=== PATIENT | male | born 1960 | race Caucasian/White ===

== ENCOUNTER → 2020-08-22 09:37 | Outpatient (BNVA) | payer OTHER, SELFPAY | PROVIDERS: Visit Provider Internal Medicine Cardiovascular Disease | DX: I10 Essential (primary) hypertension (principal) | CPT/HCPCS: 99214 ==

== ENCOUNTER 2020-08-23 10:11 | Outpatient (REF) | payer OTHER, SELFPAY ==
[2020-08-23 13:10] LABS: Amphetamine Screen Urine Not Detected (Not Detect); Barbiturates, Urine Not Detected (Not Detect); Benzodiazepines Screen Urine Not Detected (Not Detect); Cannabinoid Screen Urine Not Detected (Not Detect); Cocaine Screen Urine Not Detected (Not Detect); Opiate Screen Urine Not Detected (Not Detect); Phencyclidine Screen Urine Not Detected (Not Detect)
== END 2020-08-23 10:12 | disposition home or self-care (01) ==
LOC: HO.10HDL 10:11
PROVIDERS: Visit Provider Physician Assistant
DX: F19.10 Other psychoactive substance abuse, uncomplicated (principal)
CPT/HCPCS: 80307

== ENCOUNTER 2020-09-19 11:28 | Outpatient (REF) | payer OTHER, SELFPAY ==
[2020-09-19 14:51] LABS: Opiate Screen Urine Not Detected (Not Detect)
[2020-09-19 14:53] LABS: Barbiturates, Urine Not Detected (Not Detect); Benzodiazepines Screen Urine Not Detected (Not Detect); Cannabinoid Screen Urine Not Detected (Not Detect); Cocaine Screen Urine Not Detected (Not Detect); Opiate Screen Urine Not Detected (Not Detect); Phencyclidine Screen Urine Not Detected (Not Detect)
[2020-09-19 14:54] LABS: Amphetamine Screen Urine Not Detected (Not Detect)
== END 2020-09-19 11:29 | disposition home or self-care (01) ==
LOC: HO.10HDL 11:28
PROVIDERS: Physician Assistant; Visit Provider Orthopaedic Surgery
DX: F19.10 Other psychoactive substance abuse, uncomplicated (principal)
CPT/HCPCS: 80307

== ENCOUNTER 2020-10-21 09:40 | Outpatient (REF) | payer OTHER, SELFPAY ==
[2020-10-21 10:57] LABS: Amphetamine Screen Urine Not Detected (Not Detect); Barbiturates, Urine Not Detected (Not Detect); Benzodiazepines Screen Urine Not Detected (Not Detect); Cannabinoid Screen Urine Not Detected (Not Detect); Cocaine Screen Urine Not Detected (Not Detect); Opiate Screen Urine Not Detected (Not Detect); Phencyclidine Screen Urine Not Detected (Not Detect)
== END 2020-10-21 09:41 | disposition home or self-care (01) ==
LOC: HO.10HDL 09:40
PROVIDERS: Visit Provider Physician Assistant
DX: F19.10 Other psychoactive substance abuse, uncomplicated (principal)
CPT/HCPCS: 80307

== ENCOUNTER 2020-10-21 09:56 | Outpatient (REF) | payer OTHER, SELFPAY ==
--- NOTE | 2020-10-21 09:56 | XR_ITS ---
EXAMINATION: AP PELVIS AND RIGHT HIP CLINICAL INFORMATION: Presence of right artificial hip joint. Pain. COMPARISON: Right hip 06/03/2020 TECHNIQUE: AP pelvis 1 view. Right hip 2 views. FINDINGS: AP pelvis: There is a total right hip prosthesis with the prosthetic components in satisfactory alignment. There is 4 mm lucency seen between the cement and bone interface medially. There is severe loss of left hip joint space with subchondral cystic changes along the femoral head and lateral acetabular spurring consistent with advanced degenerative changes. Rest the pelvis and SI joints unremarkable. Right hip: There is a total right hip prosthesis in alignment. There is significant increased distance between the cement and the bone interface medially on frog-leg view suggestive of loosening. Hypertrophic bony changes seen along the lateral proximal femur. The femoral head is well situated within the acetabulum. XR/XR pelvis 1-2V IMPRESSION: Right hip arthroplasty in satisfactory alignment with hypertrophic bony changes along the lateral proximal femur. There is medial loosening of the femoral prosthesis which has progressed since May 2020. The femoral head prosthesis is good alignment with [place] acetabulum. Severe degenerative arthritic changes left hip joint with subchondral cystic changes and mild lateral acetabular spurring.
--- NOTE | 2020-10-21 09:56 | XR_ITS ---
EXAMINATION: AP PELVIS AND RIGHT HIP CLINICAL INFORMATION: Presence of right artificial hip joint. Pain. COMPARISON: Right hip 06/03/2020 TECHNIQUE: AP pelvis 1 view. Right hip 2 views. FINDINGS: AP pelvis: There is a total right hip prosthesis with the prosthetic components in satisfactory alignment. There is 4 mm lucency seen between the cement and bone interface medially. There is severe loss of left hip joint space with subchondral cystic changes along the femoral head and lateral acetabular spurring consistent with advanced degenerative changes. Rest the pelvis and SI joints unremarkable. Right hip: There is a total right hip prosthesis in alignment. There is significant increased distance between the cement and the bone interface medially on frog-leg view suggestive of loosening. Hypertrophic bony changes seen along the lateral proximal femur. The femoral head is well situated within the acetabulum. XR/XR hip RT min 2V IMPRESSION: Right hip arthroplasty in satisfactory alignment with hypertrophic bony changes along the lateral proximal femur. There is medial loosening of the femoral prosthesis which has progressed since May 2020. The femoral head prosthesis is good alignment with [place] acetabulum. Severe degenerative arthritic changes left hip joint with subchondral cystic changes and mild lateral acetabular spurring.
== END 2020-10-21 09:57 | disposition home or self-care (01) ==
LOC: HO.HOSX 09:56
PROVIDERS: Visit Provider Physician Assistant
DX: Z96.641 Presence of right artificial hip joint (principal)
CPT/HCPCS: 72170; 73502

== ENCOUNTER 2020-11-05 12:08 | Outpatient (REF) | payer OTHER, SELFPAY ==
--- NOTE | 2020-11-05 14:19 | ECG_ITS ---
Test Reason : CP Blood Pressure : / mmHG Vent. Rate : 093 BPM Atrial Rate : 093 BPM P-R Int : 188 ms QRS Dur : 104 ms QT Int : 374 ms P-R-T Axes : 051 -37 027 degrees QTc Int : 465 ms Normal sinus rhythm Left axis deviation Minimal voltage criteria for LVH, may be normal variant Inferior infarct , age undetermined Cannot rule out Anterior infarct , age undetermined Abnormal ECG When compared with ECG of 15-SEP-2019 11:17, Inferior infarct is now Present Referred By: Ancelmo Bran Electronically Signed By:LUCIANA BRADY MD
[2020-11-05 15:12] LABS: Eosinophils Percent Auto 0.4 % (0-4); Hemoglobin 9.8 g/dl (14.0-18.0); MANUAL DIFF FLAG SCAN; Red Cell Distribution Width 25.2 % (11.0-16.0); SCAN SMEAR FLAG 1
[2020-11-05 15:14] LABS: Basophils Absolute Auto 0.1 X10*3/uL (0.0-0.2); Basophils Percent Auto 0.9 % (0-2); Hematocrit 36.3 % (42-52); Imm Gran Abs Auto 0.03 X10*3/uL (0.00-0.03); Imm Gran Pct Auto 0.4 % (0.0-0.4); Mean Corpuscular Hemoglobin 15.2 pg (27.0-33.0); Monocytes Absolute Auto 0.5 X10*3/uL (0.1-1.2); Monocytes Percent Auto 6.3 % (2-11); Neutrophils Absolute Auto 5.1 X10*3/uL (2.0-8.3); Platelet Count 491 X10*3/uL (160-400); Red Blood Count 6.43 X10*6/uL (4.60-5.80); White Blood Count 7.7 X10*3/uL (4.8-10.8)
[2020-11-05 15:30] LABS: Anion Gap 15 (12-20); Blood Urea Nitrogen 13 mg/dL (9-16); Calcium 9.7 mg/dL (8.4-10.2); Carbon Dioxide 25 mmol/L (22-29); Chloride 105 mmol/L (96-108); Estimated Glomerular Filt Rate > 60; Glucose Random 101 mg/dL (60-115); Potassium 4.5 mmol/l (3.3-5.1); Sodium 140 mmol/L (135-145)
[2020-11-05 15:55] LABS: Opiate Screen Urine Not Detected (Not Detect)
[2020-11-05 16:03] LABS: Mean Corpuscular Volume 56.5 fL (80-98)
[2020-11-05 16:04] LABS: PLT ABN DIST 1
[2020-11-05 16:11] LABS: SLIDE REVIEW VERIFIED
== END 2020-11-05 12:09 | disposition home or self-care (01) ==
LOC: HO.LAB 12:08
PROVIDERS: PCP Nurse Practitioner Family; Visit Provider Orthopaedic Surgery
DX: Z01.810 Encounter for preprocedural cardiovascular examination (principal); T84.51XD Infection and inflammatory reaction due to internal right hip prosthesis, subsequent encounter
CPT/HCPCS: 36415; 80048; 80307; 85025; 85060; 93005; 99212

== ENCOUNTER 2020-11-28 | Outpatient (REF) | payer OTHER, SELFPAY ==
--- NOTE | 2020-11-11 13:14 | P.CONAN_ITS ---
HPI - Anesthesia Eval Consult details Narrative: 60yo M for Hip Replacement Revision Total Original R SATYA 08/2019, antibiotic spacer 09/2019 Revision delayed d/t opioid misuse. Currently on suboxone. Pt cx'd d/t refusal of Urine Tox screen [facility] Past Medical History Medical History (Updated 11/07/20 @ 11:44 by Arline Heck) Asthma Chronic hepatitis C Cocaine abuse Heroin abuse Hip arthritis HTN (hypertension) Hypertension Osteoarthritis Severe depression Sleep apnea Family History Family History Father No problems noted. Mother No problems noted. Surgical History Surgical History (Updated 11/07/20 @ 11:43 by Arline Heck) H/O arthroscopy of left knee H/O wrist surgery History of cranial surgery History of excision of lesion History of hip replacement, total History of incision and drainage Hx of eye surgery Hx of hemorrhoidectomy Social History Social History Smoking Status: Never smoker Second Hand Smoke Exposure: No Use of substances other than those prescribed or required for medical reasons: Yes Advance Directives: Yes Advance Directives Information Provided: No Advance Directives on File: Yes Advance Directives Date on File: 08/23/20 Meds Allergies Allergy/AdvReac Type Severity Reaction Status Date / Time No Known Allergies Allergy Unverified 09/19/20 11:09 Home Medications Medication Instructions Recorded Confirmed Type diltiazem HCl 240 mg 240 mg PO BID cap 08/22/20 10/22/20 History capsule,extended release 24 hr, controlled Exam Exam Date and Time: November 11, 2020 1314 Pertinent Lab Results Pertinent Lab Results: Laboratory Tests 11/05/20 14:25 Blood Type O Negative Antibody Screen NEGATIVE Laboratory Tests 11/05/20 11/05/20 09:21 09:21 WBC 7.7 Hgb 9.8 L Hct 36.3 L Plt Count 491 H Sodium 140 Potassium 4.5 Chloride 105 Carbon Dioxide 25 BUN 13 Creatinine 1.03 Narrative Narrative: EKG 10/2020 Normal sinus rhythm Left axis deviation Minimal voltage criteria for LVH, may be normal variant Inferior infarct , age undetermined Cannot rule out Anterior infarct , age undetermined Abnormal ECG When compared with ECG of 15-SEP-2019 11:17, Inferior infarct is now Present EKG reviewed by cardiology Dr Barbosa. OK to proceed if pt free from symptoms like chest pain/SOB Lexiscan stress 2019 nml per 08/2020 cardiology OV note. Assessment and Plan Assessment Anesthesia Assessment: Chart Reviewed
[2020-11-13 09:54] VITALS: BMI 22.0
--- NOTE | 2020-11-17 07:56 | MHC.SHP ---
Pre-Procedural Eval Section A The patient is an INPATIENT: No Changes since office visit: No Cold of Flu in the past 2 weeks, No New Medical Problems, No Changes in Medication and No Patient answered all questions The History & Physical has been completed within 30 days and I have reviewed it.: Yes Section B Chief Complaint: hip pain Allergies: Allergies Allergy/AdvReac Type Severity Reaction Status Date / Time No Known Allergies Allergy Unverified 09/19/20 11:09 Plan I have reviewed the history and physical and performed a pertinent physical examination on my patient. No changes have occurred unless specified.
--- NOTE | 2020-11-18 07:20 | PC.NURSE ---
Addendum entered by Altagracia King RN 11/18/20 07:42: INSTRUM SPOKE TO PT. Original Note: PT NOT ABLE TO VOID AND REFUSING TO TRY. ANESTHESIA MADE AWARE. BLOOD DRAW SUGGESTED BY ANESTHESIA BUT PT REFUSING. STATES HE'S DONE ENOUGH URINES OVER LAST FEW MONTHS AND WON'T DO ANOTHER ONE. LAST ONE DONE NOV 05 AND WAS NEGATIVE. ALL THIS INFO COMMUNICATED TO DR JHAVERI AND DR SWEENEY. [facility]UM CANCELLED THE SURGERY.
[2020-11-18 07:30] LABS: COVID-19 Test Negative (Negative)
== END 2020-11-28 00:01 ==
LOC: HO.LAB
PROVIDERS: PCP Nurse Practitioner Family; Visit Provider Orthopaedic Surgery
DX: Z96.641 Presence of right artificial hip joint (principal); Z20.828 Contact with and (suspected) exposure to other viral communicable diseases
CPT/HCPCS: 36415; 86850; 86900; 86901; 87635; J3370

== ENCOUNTER 2020-12-10 09:34 | Outpatient (REF) | payer OTHER, SELFPAY ==
[2020-12-10 10:51] LABS: Amphetamine Screen Urine Not Detected (Not Detect); Barbiturates, Urine Not Detected (Not Detect); Benzodiazepines Screen Urine Not Detected (Not Detect); Cannabinoid Screen Urine Not Detected (Not Detect); Cocaine Screen Urine Not Detected (Not Detect); Opiate Screen Urine Not Detected (Not Detect); Phencyclidine Screen Urine Not Detected (Not Detect)
== END 2020-12-10 09:35 | disposition home or self-care (01) ==
LOC: HO.10HDL 09:34
PROVIDERS: Visit Provider Orthopaedic Surgery
DX: F19.10 Other psychoactive substance abuse, uncomplicated (principal)
CPT/HCPCS: 80307

== ENCOUNTER 2020-12-18 08:39 | Outpatient (REF) | payer OTHER, SELFPAY ==
[2020-12-18 10:58] LABS: Opiate Screen Urine Not Detected (Not Detect)
== END 2020-12-18 08:40 | disposition home or self-care (01) ==
LOC: HO.10HDL 08:39
PROVIDERS: Visit Provider Orthopaedic Surgery
DX: F19.10 Other psychoactive substance abuse, uncomplicated (principal)
CPT/HCPCS: 80307

== ENCOUNTER 2020-12-25 10:55 | Outpatient (REF) | payer OTHER, SELFPAY ==
[2020-12-25 15:01] LABS: Opiate Screen Urine Not Detected (Not Detect)
== END 2020-12-25 10:56 | disposition home or self-care (01) ==
LOC: HO.10HDL 10:55
PROVIDERS: Visit Provider Orthopaedic Surgery
DX: F19.10 Other psychoactive substance abuse, uncomplicated (principal)
CPT/HCPCS: 80307

== ENCOUNTER 2021-01-01 10:05 | Outpatient (REF) | payer OTHER, SELFPAY ==
[2021-01-01 14:44] LABS: Opiate Screen Urine Not Detected (Not Detect)
== END 2021-01-01 10:06 | disposition home or self-care (01) ==
LOC: HO.10HDL 10:05
PROVIDERS: Visit Provider Orthopaedic Surgery
DX: F19.10 Other psychoactive substance abuse, uncomplicated (principal)
CPT/HCPCS: 80307

== ENCOUNTER 2021-07-16 09:22 | Outpatient (REF) | payer MEDICARE, MEDICAID, SELFPAY ==
--- NOTE | ~2021-07-16 | XR_ITS ---
EXAMINATION: XR HIP, LEFT CLINICAL INFORMATION: Pain COMPARISON: Previous pelvis x-ray October 2020 TECHNIQUE: Two views of the left hip. FINDINGS: No fracture or dislocation is seen. There is severe left hip arthritis with joint space narrowing, osteophyte formation and subchondral cyst formation. Bones of the visualized pelvis are unremarkable. Soft tissues are unremarkable. XR/XR hip LT min 2V IMPRESSION: Severe left hip arthritis.
== END 2021-07-16 09:23 | disposition home or self-care (01) ==
LOC: HO.HMGCX 09:22
PROVIDERS: PCP Nurse Practitioner Family; Visit Provider Nurse Practitioner Family
DX: Z13.89 Encounter for screening for other disorder (principal)
CPT/HCPCS: 73502

== ENCOUNTER 2021-09-10 09:55 | Outpatient (REF) | payer MEDICARE, MEDICAID, SELFPAY ==
[2021-09-10 12:08] LABS: Alanine Aminotransferase 13 U/L (0-40); Albumin Level 4.4 g/dL (3.5-5.0); Alkaline Phosphatase 101 U/L (39-117); Anion Gap 13 (12-20); Aspartate Amino Transferase 22 U/L (5-37); Bilirubin Total 0.4 mg/dL (0.0-1.0); Blood Urea Nitrogen 13 mg/dL (9-16); Calcium 9.3 mg/dL (8.4-10.2); Carbon Dioxide 30 mmol/L (22-29); Chloride 101 mmol/L (96-108); Cholesterol 151 mg/dL; Estimated Glomerular Filt Rate > 60; Glucose Fasting 89 mg/dL (60-99); HDL Cholesterol 63 mg/dL; LDL Cholesterol Calculated 72 mg/dl; Potassium 4.9 mmol/L (3.3-5.1); Sodium 139 mmol/L (135-145); Total Protein 8.4 g/dL (6.5-8.0); Triglycerides 81 mg/dL
[2021-09-10 12:18] LABS: TSH reflex Free T4 2.46 uIU/mL (0.32-4.0)
== END 2021-09-10 09:56 | disposition home or self-care (01) ==
LOC: HO.HMGCLDS 09:55
PROVIDERS: PCP Nurse Practitioner Family; Visit Provider Nurse Practitioner Family
DX: I10 Essential (primary) hypertension (principal)
CPT/HCPCS: 36415; 80053; 80061; 84443

== ENCOUNTER 2021-09-11 | Outpatient (REF) | payer MEDICARE, MEDICAID, SELFPAY ==
[2021-09-11 13:52] LABS: Appearance Urine CLEAR; Color Urine YELLOW; Glucose Urine UA NEG (NEG); Leukocyte Esterase Urine NEG (NEG); Nitrite Urine NEG (NEG); PH 5.5 (5.0-8.0); Specific Gravity - Urine 1.015 (1.005-1.025); Urine Blood NEG (NEG); Urine Ketones NEG (NEG); Urine Protein NEG (NEG-TRACE)
== END 2021-09-11 00:01 | disposition home or self-care (01) ==
LOC: HO.HMGCLNP
PROVIDERS: Visit Provider Nurse Practitioner Family
DX: I10 Essential (primary) hypertension (principal)
CPT/HCPCS: 81003

== ENCOUNTER 2021-09-17 10:00 | Outpatient (RCR) | payer MEDICARE, OTHER, MEDICAID, SELFPAY | END 2021-09-26 08:35 | disposition home or self-care (01) | LOC: HO.PTCHIC 10:00 | PROVIDERS: PCP Nurse Practitioner Family; Visit Provider Physician Assistant | DX: Z98.890 Other specified postprocedural states (principal); Z86.19 Personal history of other infectious and parasitic diseases | CPT/HCPCS: 97110; 97112; 97140; 97161 ==

== ENCOUNTER 2021-09-17 14:19 | Outpatient (REF) | payer MEDICARE, MEDICAID, SELFPAY ==
[2021-09-17 17:23] LABS: Prostate Specific Antigen Scr 0.19 ng/mL (<0.05-4.0)
== END 2021-09-17 14:20 | disposition home or self-care (01) ==
LOC: HO.HMGCLDS 14:19
PROVIDERS: Visit Provider Nurse Practitioner Family
DX: Z12.5 Encounter for screening for malignant neoplasm of prostate (principal)
CPT/HCPCS: 36415; 84153

== ENCOUNTER 2021-12-04 11:05 | Outpatient (REF) | payer MEDICARE, MEDICAID, SELFPAY ==
[2021-12-04 14:36] LABS: Alanine Aminotransferase 13 U/L (0-40); Albumin Level 4.2 g/dL (3.5-5.0); Alkaline Phosphatase 103 U/L (39-117); Anion Gap 13 (12-20); Aspartate Amino Transferase 18 U/L (5-37); Bilirubin Total 0.2 mg/dL (0.0-1.0); Blood Urea Nitrogen 13 mg/dL (9-16); Calcium 9.4 mg/dL (8.4-10.2); Carbon Dioxide 30 mmol/L (22-29); Chloride 103 mmol/L (96-108); Cholesterol 141 mg/dL; Estimated Glomerular Filt Rate > 60; Glucose Fasting 99 mg/dL (60-99); HDL Cholesterol 57 mg/dL; LDL Cholesterol Calculated 70 mg/dl; Sodium 141 mmol/L (135-145); Triglycerides 73 mg/dL
[2021-12-04 15:03] LABS: TSH reflex Free T4 2.09 uIU/mL (0.32-4.0)
== END 2021-12-04 11:06 | disposition home or self-care (01) ==
LOC: HO.HMGCLDS 11:05
PROVIDERS: Visit Provider Nurse Practitioner Family
DX: I10 Essential (primary) hypertension (principal)
CPT/HCPCS: 36415; 80053; 80061; 84443

== ENCOUNTER 2021-12-10 10:00 | Outpatient (RCR) | payer MEDICARE, MEDICAID, SELFPAY | END 2021-12-11 07:00 | disposition home or self-care (01) | LOC: HO.PTCHIC 10:00 | PROVIDERS: PCP Nurse Practitioner Family; Visit Provider Physician Assistant | DX: Z96.642 Presence of left artificial hip joint (principal) | CPT/HCPCS: 97110; 97162 ==

== ENCOUNTER 2021-12-22 10:32 | Outpatient (REF) | payer MEDICARE, MEDICAID, SELFPAY ==
[2021-12-22 13:45] LABS: TSH reflex Free T4 1.17 uIU/mL (0.32-4.0)
[2021-12-22 14:04] LABS: Folate 17.4 ng/mL (> or = 4.0); Vitamin B12 709 pg/mL (200-900)
[2021-12-23 16:09] LABS: H Pylori Breath Test Negative (Negative)
[2021-12-28 13:56] LABS: Vitamin D 25-OH, D2 <4 ng/mL; Vitamin D 25-OH, D3 23 ng/mL; Vitamin D 25-OH, Total 23 ng/mL (30-100)
== END 2021-12-22 10:33 | disposition home or self-care (01) ==
LOC: HO.LAB 10:32
PROVIDERS: PCP Nurse Practitioner Family; Referring Provider Nurse Practitioner Family; Visit Provider Nurse Practitioner Family
DX: R13.10 Dysphagia, unspecified (principal); R19.7 Diarrhea, unspecified; K21.9 Gastro-esophageal reflux disease without esophagitis; E55.9 Vitamin D deficiency, unspecified
CPT/HCPCS: 36415; 82306; 82607; 82746; 83013; 84443; 99202

== ENCOUNTER → 2021-12-29 10:26 | Outpatient (REF) | payer MEDICARE, MEDICAID, SELFPAY ==
--- NOTE | 2021-12-29 10:29 | CA_ITS ---
Transthoracic Echocardiogram Patient (Last, First, Middle): Thaddeus King B Gender: Male Date of : 1960 Age: 61 Procedure Date: 12/29/2021 Procedure Type: Transthoracic Echocardiogram Location: OP Height: 149.86 cm Weight: 99.79 kg BSA: 1.92 m2 Heart Rate: bpm BP: 160 / 84 mmHg Program Aide: YASMEEN Referring MD: Twan Hamilton [facility] [employer] Manufacturer: Fish Rodriguez MD Symptoms: I35.0 - Nonrheumatic aortic (valve) stenosis Study Quality: Fair ECG Rhythm: Sinus Conclusions: - 1. Normal LV systolic function with mild LVH and moderate asymmetric septal hypertrophy with pseudonormal filling pattern 2. At least moderately dilated left atrium 3. Mild aortic stenosis 4. Normal RV systolic pressure 5. No gross pericardial effusion 6. Mildly dilated ascending aorta Findings Left Ventricle Normal left ventricular cavity size. There is mildly increased left ventricular wall thickness. The left ventricular systolic function is normal. The visually estimated ejection fraction is between 65-70%. Spectral Doppler is indicative of a pseudonormal filling pattern. E/E prime ratio is between 8 and 15 consistent with indeterminate filling pressures. There is moderate septal asymmetric hypertrophy. Right Ventricle Normal right ventricular cavity size and systolic function. Atria The left atrium is moderately dilated. Interatrial shunt cannot be excluded. The right atrium is likely dilated. Aortic Valve There is mild calcification of the aortic valve. There is mild thickening of the aortic valve. There is mild aortic valve stenosis. The mean gradient is 18 mmHg. The aortic valve area is 1.80 cm2. There is trace (trivial) aortic valve regurgitation. Mitral Valve Likely normal mitral valve structure and function. There is trace mitral valve regurgitation. There is no mitral valve stenosis. Pulmonic Valve The pulmonic valve was not well visualized. Tricuspid Valve Likely normal tricuspid valve structure and function. There is trace tricuspid valve regurgitation. The right ventricular systolic pressure is normal. The right ventricular systolic pressure is 18 mmHg. There is no evidence of pulmonary hypertension. Great Vessels The pulmonary artery was not well visualized. There is mild dilatation of the ascending aorta measuring 4.00 cm. Venous The inferior vena cava is normal in size and collapses greater than 50% with inspiration. Pericardium/Pleural There is no evidence of pericardial effusion. Prior Study Comparison No significant change compared to prior study dated: 06/28/2020. Measurements 2D Linear Measurements IVSd: 1.47 0.6-0.9/0.6-1.0 cm LVIDd: 4.89 3.9-5.3/4.2-5.9 cm LVIDd Index: 2.55 2.4-3.2/2.2-3.1 cm/m2 LVIDs: 3.33 2.0-3.6 cm LVPWd: 1.29 0.7-1.1 cm Ao Root: 3.90 2.1-3.5 cm LA Diam: 4.50 2.7-3.8/3.0-4.0 cm LAIDs Index: 2.34 1.5-2.3 cm/m2 LV Mass: 344.00 67-162/88-224 g LV Mass Index: 179.17 43-95/49-115 g/m2 LVOT Diam: 2.10 3.0+(-)1.3 cm 2D Systolic Function EF 4C: 72.10 >55% EF 2C: 61.60 >55% EF BiP: 67.80 >55% Mitral Valve MV Pk E: 1.10 MV PK A: 0.88 MV Decel Time: 296.00 E/A: 1.30 E'Lateral: 11.30 E'Medial: 9.25 E/E' Med: 11.90 E/E' Lat: 9.70 PHT: 87.00 MVA PHT: 2.53 Decel Mclennan: 3.72 Aortic Valve AoV Pk Reginaldo: 2.88 AoV Mn Reginaldo: 2.05 AoV VTI: 0.62 AoV Pk Grad: 33.00 Aov Mn Grad: 18.00 SRI Cont.VTI: 1.80 LVOT LVOT Pk Reginaldo: 1.57 LVOT Mn Reginaldo: 1.16 LVOT VTI: 0.38 LVOT Pk Grad: 10.00 LVOT Mn Grad: 6.00 LVOT Diam: 2.10 LVOT Area: 3.46 Diastolic Function MV Pk E: 1.10 MV Pk A: 0.88 E/A: 1.30 E'Medial: 9.25 E/E' Med: 11.90 E' Laterial: 11.30 E/E' Lat: 9.70 Right Ventricle TAPSE (mm): 30.00 TVS' Reginaldo: 15.90 Tricuspid Valve TR Pk Reginaldo: 1.93 TR Pk Grad: 15.00 RA Press: 3.00 RVSP: 18.00 Great Vessels Aorta Ao Root-2D: 3.90 2.0-3.7 cm Ao Asc: 4.00 2.1-3.4 cm Ao Arch: 3.70 Updated in Other Vendor System with Status of Final Fish Rodriguez MD electronically signed on 12/30/2021 11:09:53 AM with status of Final
== END ==
LOC: HO.CARD 10:26
PROVIDERS: PCP Nurse Practitioner Family; Visit Provider Nurse Practitioner Family
DX: I27.20 Pulmonary hypertension, unspecified (principal); I35.0 Nonrheumatic aortic (valve) stenosis; I51.7 Cardiomegaly
CPT/HCPCS: 93306

== ENCOUNTER → 2022-01-01 11:46 | Outpatient (BNVA) | payer MEDICARE, MEDICAID, SELFPAY | PROVIDERS: PCP Nurse Practitioner Family; Referring Provider Nurse Practitioner Family; Visit Provider Internal Medicine Cardiovascular Disease | DX: I35.0 Nonrheumatic aortic (valve) stenosis (principal); I10 Essential (primary) hypertension | CPT/HCPCS: 93005; 99212 ==

== ENCOUNTER 2022-02-13 11:15 | Outpatient (REF) | payer MEDICARE, SELFPAY ==
[2022-02-13 13:44] LABS: MANUAL DIFF FLAG NO
[2022-02-13 13:53] LABS: Basophils Absolute Auto 0.1 X10*3/uL (0.0-0.2); Basophils Percent Auto 1.1 % (0-2); Eosinophils Absolute Auto 0.4 X10*3/uL (0.0-0.4); Eosinophils Percent Auto 5.7 % (0-4); Hematocrit 31.7 % (42.0-52.0); Hemoglobin 8.6 g/dl (14.0-18.0); Imm Gran Abs Auto 0.01 X10*3/uL (0.00-0.03); Imm Gran Pct Auto 0.1 % (0.0-0.4); Lymphocytes Absolute Auto 2.3 X10*3/uL (1.2-4.9); Lymphocytes Percent Auto 32.8 % (20-40); Mean Corpuscular HGB Conc 27.1 g/dl (31.0-36.0); Mean Corpuscular Hemoglobin 16.1 pg (27.0-33.0); Monocytes Absolute Auto 0.6 X10*3/uL (0.1-1.2); Monocytes Percent Auto 8.1 % (2-11); Neutrophils Absolute Auto 3.7 x10*3/uL (2.0-8.3); Neutrophils Percent Auto 52.2 % (45-73); Platelet Count 350 X10*3/uL (160-400); Red Blood Count 5.34 X10*6/uL (4.60-5.80); Red Cell Distribution Width 21.8 % (11.0-16.0)
[2022-02-13 13:54] LABS: Mean Corpuscular Volume 59.4 fL (80.0-98.0)
[2022-02-13 14:06] LABS: Alanine Aminotransferase 13 U/L (0-40); Albumin Level 4.4 g/dL (3.5-5.0); Alkaline Phosphatase 108 U/L (39-117); Anion Gap 12 (12-20); Aspartate Amino Transferase 20 U/L (5-37); Bilirubin Total 0.4 mg/dL (0.0-1.0); Blood Urea Nitrogen 18 mg/dL (9-16); Calcium 9.4 mg/dL (8.4-10.2); Carbon Dioxide 30 mmol/L (22-29); Chloride 101 mmol/L (96-108); Cholesterol 146 mg/dL; Estimated Glomerular Filt Rate > 60; Glucose Fasting 91 mg/dL (60-99); HDL Cholesterol 54 mg/dL; LDL Cholesterol Calculated 79 mg/dl; Potassium 4.4 mmol/L (3.3-5.1); Sodium 139 mmol/L (135-145); Total Protein 8.3 g/dL (6.5-8.0); Triglycerides 67 mg/dL
[2022-02-13 14:22] LABS: TSH reflex Free T4 1.75 uIU/mL (0.32-4.0)
[2022-02-14 06:52] LABS: Follicle Stimulating Hormone 8.6 mIU/mL (1.6-8.0)
[2022-02-19 10:52] LABS: Testosterone, Free 31.2 pg/mL (35.0-155.0); Testosterone, Total 214 ng/dL (250-1100)
== END 2022-02-13 11:16 | disposition home or self-care (01) ==
LOC: HO.HMGCLDS 11:15
PROVIDERS: Visit Provider Nurse Practitioner Family
DX: N52.9 Male erectile dysfunction, unspecified (principal); I10 Essential (primary) hypertension
CPT/HCPCS: 36415; 80053; 80061; 83001; 83002; 84402; 84403; 84443; 85025

== ENCOUNTER 2022-03-04 14:17 | Outpatient (REF) | payer MEDICARE, SELFPAY ==
[2022-03-04 16:27] LABS: Hematocrit 31.2 % (42.0-52.0); SCAN SMEAR FLAG 1
[2022-03-04 16:30] LABS: Basophils Absolute Auto 0.1 X10*3/uL (0.0-0.2); Eosinophils Absolute Auto 0.3 X10*3/uL (0.0-0.4); Eosinophils Percent Auto 4.1 % (0-4); Hemoglobin 8.6 g/dl (14.0-18.0); Imm Gran Abs Auto 0.03 X10*3/uL (0.00-0.03); Imm Gran Pct Auto 0.4 % (0.0-0.4); Lymphocytes Absolute Auto 2.3 X10*3/uL (1.2-4.9); Lymphocytes Percent Auto 30.6 % (20-40); MANUAL DIFF FLAG SCAN; Mean Corpuscular HGB Conc 27.6 g/dl (31.0-36.0); Mean Corpuscular Hemoglobin 16.2 pg (27.0-33.0); Monocytes Absolute Auto 0.5 X10*3/uL (0.1-1.2); Monocytes Percent Auto 7.3 % (2-11); Neutrophils Absolute Auto 4.2 x10*3/uL (2.0-8.3); Neutrophils Percent Auto 56.6 % (45-73); Platelet Count 371 X10*3/uL (160-400); Red Blood Count 5.32 X10*6/uL (4.60-5.80); Red Cell Distribution Width 22.1 % (11.0-16.0); Retic HGB Equivalent 18.1 pg (30.0-35.0); Reticulocyte Percent 0.8 % (0.5-1.8); Reticulocytes Absolute 0.041 X10*6/uL (0.026-0.095); White Blood Count 7.4 X10*3/uL (4.8-10.8)
[2022-03-04 16:32] LABS: Hematocrit 31.1 % (42.0-52.0); Mean Corpuscular HGB Conc 27.7 g/dl (31.0-36.0); Mean Corpuscular Hemoglobin 16.3 pg (27.0-33.0); Platelet Count 366 X10*3/uL (160-400); Red Blood Count 5.28 X10*6/uL (4.60-5.80); White Blood Count 7.3 X10*3/uL (4.8-10.8)
[2022-03-04 16:53] LABS: Iron 14 mcg/dL (45-160); Percent Iron Saturation 3 % (15-50); Total Iron Binding Capacity 438 mcg/dL (228-428); Unsaturated Iron Binding 424 ug/dL
[2022-03-04 17:17] LABS: Ferritin 7 ng/mL (20-250)
[2022-03-04 17:19] LABS: Mean Corpuscular Volume 58.6 fL (80.0-98.0); Mean Corpuscular Volume 58.9 fL (80.0-98.0); PLT ABN DIST 1
[2022-03-04 17:25] LABS: SLIDE REVIEW VERIFIED
[2022-03-04 17:30] LABS: Appearance Urine CLEAR; Color Urine YELLOW; Glucose Urine UA NEG (NEG); Leukocyte Esterase Urine NEG (NEG); Nitrite Urine NEG (NEG); PH 5.5 (5.0-8.0); Specific Gravity - Urine >= 1.030 (1.005-1.025); Urine Blood NEG (NEG); Urine Ketones NEG (NEG); Urine Protein NEG (NEG-TRACE)
== END 2022-03-04 14:18 | disposition home or self-care (01) ==
LOC: HO.LAB 14:17
PROVIDERS: PCP Nurse Practitioner Family; Referring Provider Nurse Practitioner Family; Visit Provider Nurse Practitioner Family
DX: R13.10 Dysphagia, unspecified (principal); I10 Essential (primary) hypertension; K21.9 Gastro-esophageal reflux disease without esophagitis; R14.0 Abdominal distension (gaseous); D50.0 Iron deficiency anemia secondary to blood loss (chronic); R74.8 Abnormal levels of other serum enzymes; K92.2 Gastrointestinal hemorrhage, unspecified; Z12.11 Encounter for screening for malignant neoplasm of colon
CPT/HCPCS: 36415; 81003; 82728; 83540; 85025; 85027; 85045; 99212

== ENCOUNTER 2022-03-11 11:01 | Outpatient (REF) | payer MEDICARE, MEDICAID, SELFPAY ==
--- NOTE | ~2022-03-11 | FL_ITS ---
PROCEDURE: FL BARIUM SWALLOW CLINICAL INFORMATION: Difficulty swallowing. COMPARISON: None TECHNIQUE: Barium swallow examination is performed using fluoroscopic evaluation in addition to multiple fluoroscopic spot views. The patient is imaged both upright and prone and using both thick and thin sulfate along with effervescent granules. Fluoroscopy time: 2.7 minutes DAP: 16.219 Gy-cm2 Images: 64 FINDINGS: Following intravenous administration of thick barium and barium-coated turkey there is normal propagation of bolus from the oral cavity through the pharynx, esophagus into stomach without any evidence of obstruction, narrowing or stricture. There is mild-to moderate retention of barium in the left pyriform sinus and bilateral valleculae which clears with difficulty on subsequent dry swallowing On placing patient supine and prone lying there is a small hiatal hernia with mild gastroesophageal reflux. There is mild mucosal irregularity involving the distal esophagus on some of the views, suspicious for esophagitis or inflammatory changes. There is a small hiatal hernia with mild gastroesophageal reflux seen. There is no abnormality seen in the pharynx. Postsurgical changes are seen in the right neck. FL/FL barium swallow IMPRESSION: Moderate retention of barium in the left piriform sinus and valleculae. Mild irregularity along the distal esophageal mucosa, question esophagitis versus other inflammatory changes. Small hiatal hernia with mild gastroesophageal reflux.
== END 2022-03-11 11:02 | disposition home or self-care (01) ==
LOC: HO.XRAY 11:01
PROVIDERS: PCP Nurse Practitioner Family; Visit Provider Internal Medicine Medical Oncology
DX: R13.10 Dysphagia, unspecified (principal)
CPT/HCPCS: 74220

== ENCOUNTER 2022-03-13 08:00 | Outpatient (REF) | payer MEDICARE, SELFPAY ==
[2022-03-14 12:08] LABS: FIT Int Ctl YES; FIT1 NEGATIVE (NEGATIVE); FIT2 NEGATIVE (NEGATIVE)
== END 2022-03-13 08:01 | disposition home or self-care (01) ==
LOC: HO.LNP 08:00
PROVIDERS: Visit Provider Nurse Practitioner Family
DX: D64.9 Anemia, unspecified (principal)
CPT/HCPCS: 82274

== ENCOUNTER 2022-03-14 11:29 | Outpatient (REF) | payer MEDICARE, SELFPAY | END 2022-03-14 11:30 | disposition home or self-care (01) | LOC: HO.LNP 11:29 | PROVIDERS: Visit Provider Nurse Practitioner Family | DX: Z13.89 Encounter for screening for other disorder (principal) ==

== ENCOUNTER 2022-03-20 08:06 | Outpatient (REF) | payer MEDICARE, SELFPAY | END 2022-03-20 08:07 | disposition home or self-care (01) | LOC: HO.MDS 08:06 | PROVIDERS: PCP Nurse Practitioner Family; Visit Provider Internal Medicine Medical Oncology | DX: D50.9 Iron deficiency anemia, unspecified (principal) | CPT/HCPCS: 96365; 96366; J1200; J1750; Q0163 ==

== ENCOUNTER → 2022-03-26 10:34 | Outpatient (BNVA) | payer MEDICARE, SELFPAY | PROVIDERS: PCP Nurse Practitioner Family; Referring Provider Nurse Practitioner Family; Visit Provider Internal Medicine Cardiovascular Disease | DX: I10 Essential (primary) hypertension (principal) | CPT/HCPCS: 99212 ==

== ENCOUNTER 2022-04-08 14:27 | Outpatient (REF) | payer MEDICARE, SELFPAY ==
--- NOTE | ~2022-04-08 | FL_ITS ---
EXAMINATION: BARIUM SWALLOW, MODIFIED CLINICAL INFORMATION: Dysphagia . COMPARISON: None TECHNIQUE: Routine modified barium swallow was performed in lateral standing position under fluoroscopy in presence of speech therapist. FINDINGS: Following oral administration of thin barium, thick barium, nectar, barium puree and barium coated solid food there is normal oral mastication with propagation bolus from the oral cavity into the pharynx and upper esophagus without any obstruction narrowing. There is a single episode of laryngeal penetration with nectar consistency barium. It was not subsequently seen. There is minimal retention of solid food in the valleculae and piriform sinuses which clears with subsequent dry swallowing. FLUOROSCOPY TIME: 2.0 minutes. DOSE AREA PRODUCT: 1.646 uGy-m2 (microgray-meter squared) FL/FL barium swallow modified IMPRESSION: Unremarkable modified barium swallow except for single episode of laryngeal penetration but no aspiration. Correlate with speech therapy results.
--- NOTE | 2022-04-10 17:44 | MHC.SL.IMP ---
Date of Plan of Treatment: 04/08/22 Onset of Symptoms/Illness: 10/09/21 Date Treatment Started: 04/08/22 Admitting Diagnosis: Asthma Chronic hepatitis C Cocaine abuse Heroin abuse Hip arthritis HTN (hypertension) Hypertension Left atrial dilatation Osteoarthritis Pulmonary HTN Severe depression Sleep apnea Surgical History H/O arthroscopy of left knee H/O wrist surgery History of cranial surgery History of excision of lesion History of hip replacement, total History of incision and drainage History of total left hip replacement History of total left hip replacement Hx of colonoscopy Hx of eye surgery Hx of hemorrhoidectomy Primary Speech & Language Diagnosis: R13.12 Oropharyngeal Phase Dysphagia Secondary Speech & Language Diagnosis: R13.14 Pharyngoesophageal Phase Dysphagia Reason for Today's Visit: 64612 Modified Barium Swallow Study Pre-evaluation Dietary Consistencies: Regular Pre-evaluation Liquid Consistency: Thin Pre-evaluation Medication Administration: Whole with Liquid Medical History: Modified Barium Swallow Study Fluoroscopic Evaluation of Swallowing Function CPT Code 33234 Evaluation Year: 2021 Reason for Study: Patient reports difficulty swallowing. Referring Physician: Cecille Mark [facility]- Evaluating Clinician: Jody Greenfield MA, CCC-ELECTROMECHANICAL TECHNOLOGIST Study Number: 1 Patient Name: Thaddeus King Status: Outpatient, Ambulatory Age: 61 Gender: Male MEDICAL HISTORY: Year of Onset or Diagnosis: 2020 Comorbidities: Asthma Chronic hepatitis C Cocaine abuse Heroin abuse Hip arthritis HTN (hypertension) Hypertension Left atrial dilatation Osteoarthritis Pulmonary HTN Severe depression Sleep apnea Surgical History H/O arthroscopy of left knee H/O wrist surgery History of cranial surgery History of excision of lesion History of hip replacement, total History of incision and drainage History of total left hip replacement History of total left hip replacement Hx of colonoscopy Hx of eye surgery Hx of hemorrhoidectomy Current (pre-evaluation) Intake/Diet: Route: PO Diet Grade: Regular Liquid Consistencies: Thin Pre-Study Functional Oral Intake Scale (FOIS): 6- Total oral intake with no special preparation, but must avoid specific foods or liquid items Pain: None reported at time of study SUBJECTIVE: Patient is a 61 year old male referred for a modified barium swallow study from his [facility] office. During his last visit with Pamela, patient reported occasional dysphagia. At that time patient denied ever choking, but did report that he had to eat his food slow and take extra sips in order to swallow. Today, patient elaborated on his difficulties swallowing. Patient stated that onset of his difficulties seemed to have occurred suddenly 6 months ago. Patient does not recall any precipitating factors or other changes occurring at the same time 6 months ago. Patient reported that he has only been eating things such as yogurts and clear soups. He reports food feeling stuck in his throat, and expectorating food. Patient states that he sits near the bathroom whenever he is in a restaurant ?in case food comes up.? Patient reports that the ?vomit looks like undigested food.? Patient did mention that he had a surgery to ?take a chunk of his tongue.? He stated ?it might have been cancer, but I don?t know.? 03/11/22 Patient had barium swallow study done at [facility]: ? FINDINGS: Following intravenous administration of thick barium and barium-coated turkey there is normal propagation of bolus from the oral cavity through the pharynx, esophagus into stomach without any evidence of obstruction, narrowing or stricture. There is mild-to moderate retention of barium in the left pyriform sinus and bilateral valleculae which clears with difficulty on subsequent dry swallowing On placing patient supine and prone lying there is a small hiatal hernia with mild gastroesophageal reflux. There is mild mucosal irregularity involving the distal esophagus on some of the views, suspicious for esophagitis or inflammatory changes. There is a small hiatal hernia with mild gastroesophageal reflux seen. There is no abnormality seen in the pharynx. Postsurgical changes are seen in the right neck. FL/FL barium swallow IMPRESSION: Moderate retention of barium in the left piriform sinus and valleculae. Mild irregularity along the distal esophageal mucosa, question esophagitis versus other inflammatory changes. Small hiatal hernia with mild gastroesophageal reflux.? Oral Motor Exam Facial Symmetry: Symmetrical Mouth Occlusion: Normal Oral-Facial Teeth Characteristics: Intact/Normal Oral-Facial Lip Pucker Description: Normal Oral-Facial Smile (Lips) Description: Normal Oral-Facial Puff Cheeks Description: Normal Oral-Facial Lip Miscellaneous Comment: Patient reports he had surgery on tongue-pointed to left side tongue. Tongue Size: Normal Tongue Excursion Description: Deviates to Left Tongue Range of Movement Description: Normal Tongue Speed of Movement Description: Normal Tongue Strength of Movement (against opposing pressure): Normal Tongue Movement Characteristics: Normal/Absent Tongue Movement Miscellaneous Observation: Slight deviation of tongue to left side. Is patient able to manage secretions?: Yes Food and Liquid Trials: Oral Impairment: Lip Closure: Did not test Oral Impairment: Tongue Control During Bolus Hold: 1=Escape to lateral buccal cavity/floor of mouth (FOM) Oral Impairment: Bolus Preparation/Mastication: 0=Timely and efficient chewing and mashing Oral Impairment: Bolus Transport/Lingual Motion: 2=Slowed tongue motion Oral Impairment: Oral Residue: 2=Residue collection on oral structures Oral Impairment:Initiation of Pharyngeal Swallow: 3=Bolus head in pyriforms Pharyngeal Impairment: Soft Palate Elevation: 0=No bolus between soft palate (SP)/pharyngeal wall (PW) Pharyngeal Impairment: Laryngeal Elevation: 1=Partial thyroid cartilage/arytenoids to epiglottic petiole movement Pharyngeal Impairment: Anterior Hyoid Excursion: 1=Partial anterior movement Pharyngeal Impairment: Epiglottic Movement: 1=Partial inversion Pharyngeal Impairment: Laryngeal Vestibular Closure:: 1=Incomplete: narrow column air/contrast in laryngeal vestibule Pharyngeal Impairment: Pharyngeal Stripping Wave: 1=Present: diminished Pharyngeal Impairment: Pharyngeal Contraction: Did not test Pharyngeal Impairment: Pharyngoesophageal Segment Openin=Partial distention/partial duration: partial obstruction of flow Pharyngeal Impairment: Tongue Base (TB) Retraction: 3=Wide column of contrast/air between TB and posterior PW Pharyngeal Impairment: Pharyngeal Residue: 2=Collection of residue within or on pharyngeal structures Pharyngeal Impairment: Esophageal Clearance Upright Position: Did not test Impressions and Recommendations Clinical Observations: OBJECTIVE: Time-out: performed at 02:45 Evaluation Start: 02:30; Stop: 02:40 Patient Positioning: Seated 70-90 degrees Viewing Planes: LATERAL ONLY Contrast: MBSImP? Standardized Protocol using commercially prepared, standardized Barium viscosities, including: Varibar? THIN LIQUID (40% w/v, <15 cps) , Varibar? NECTAR (40% w/v, <150-450 cps) , Varibar? THIN HONEY (40% w/v, <800-1800 cps) , 1/2 Shortbread Cookie (1 x1 x.25 ) MBSImP ID: [id number] [facility] Results: Lip closure for intraoral bolus containment could not be assessed due to logistical reasons not related to physiologic impairment. Tongue control during bolus hold allowed bolus escape to the lateral buccal cavity/floor of mouth. Bolus preparation and mastication resulted in timely and efficient chewing and mashing. Bolus transport/lingual motion was with slowed tongue motion. Oral residue was a collection on oral structures. Initiation of the pharyngeal swallow occurred when the bolus head was in the pyriform sinuses. Soft palate elevation resulted in no bolus between the soft palate and the pharyngeal wall. Laryngeal elevation was decreased, with partial superior movement of the thyroid cartilage/partial approximation of the arytenoids to the epiglottic petiole. Anterior hyoid excursion demonstrated partial anterior movement. Epiglottic movement resulted in partial inversion. Laryngeal vestibular closure was incomplete, with a narrow column of air/contrast noted within the laryngeal vestibule at the height of the swallow. Pharyngeal stripping wave was present, but diminished. Pharyngeal contraction could not be determined due to logistical reasons not related to physiologic impairment. Pharyngoesophageal segment opening demonstrated partial distension/partial duration, with partial obstruction of bolus flow. Tongue base retraction allowed a wide column of contrast or air between the retracted tongue base and the posterior pharyngeal wall. Pharyngeal residue was a collection of residue within or on pharyngeal structures. Esophageal clearance in the upright position could not be assessed due to logistical reasons not related to physiologic impairment. Oral Impairment Score: 8 (absence of score, component 1) Pharyngeal Impairment Score: 11 (absence of score, component 13) Esophageal Impairment Score: --- (absence of score, component 17) Laryngeal Penetration and Aspiration: Penetration was observed in today's study. Thin Contrast entered the airway, remained above the vocal folds, and was ejected from the airway. ASSESSMENT: Clinician Assessment: This exam was conducted by a multidisciplinary team, which included a speech pathologist, radiologist, and small electric engine technician. Imaging was taken for lateral view only. Patient trialed the following liquid and solid consistencies: 5 mL thin liquid barium, individual cup sip thin liquid barium with bolus hold, consecutive cup sips thin liquid barium, pureed solid (mixture applesauce with barium paste), ground solid (mixture chicken salad with barium paste), regular solid (Korina Doone cookie coated with barium paste). Patient displayed some bolus escape to floor of mouth. Posterior tongue movement for transport of bolus was slow. Reduced tongue base retraction. Mastication however was timely and efficient. Mild lingual residue reduced with subsequent dry swallow. Patient did swallow multiple times per bite. Pharyngeal swallow trigger was delayed, initiated as bolus head reached pyriform sinuses. No nasopharyngeal reflux. Laryngeal elevation was partial with partial epiglottic inversion. Laryngeal vestibular closure was incomplete. Note intermittent episodes of flash penetration when patient drank thin liquid by cup. Contrast remained above the vocal folds, immediately and spontaneously ejected. Also note coating of posterior surface of epiglottis when drinking nectar thick liquid. No evidence of aspiration during this exam. Mild residue in valleculae, pyriforms, and on tongue base. Dry swallow and additional sip of liquid were both effective strategies in reducing pharyngeal residue. The following compensatory strategies have not been used until today's study, but when employed, improved swallowing function: Liquid Wash decreased Oral Residue, Pharyngeal Residue Additional Swallow(s) per Bolus decreased Oral Residue, Pharyngeal Residue Liquid Intake Recommendation: Thin Liquid Intake Strategies: Small Sips, No Straws Dietary Recommendations: Regular Medication Administration: Whole with Liquid Please contact the pharmacy regarding appropriate crushable or liquid drug formulations that are available whenever modified delivery is recommended. Compensatory Strategies Recommended: Sitting Upright (90 deg) Double Swallow No Straw Small Bites and Sips Alternate Liquids/Solids Rate of Ingestion Change Avoid Specific Foods Supervision during eating and or drinking: None Needed Recommended Treatments: Compens. Strategy Educat. Recommendation for Speech Therapy: Outpatient Speech Therapy Text Comment: Frequency/Duration: 1 f/u Date Range for Service Requested: Timeline to reassess: PLAN: Intake Recommendations: Route: PO Diet Grade: Regular Liquid Consistencies: Thin Post-Study Functional Oral Intake Scale (FOIS): 6- Total oral intake with no special preparation, but must avoid specific foods or liquid items This exam revealed intermittent flash penetration with thin liquid. No evidence of aspiration. Patient displayed mild oral residue and mild pharyngeal residue. Dry swallow and additional sip of liquid were effective strategies in reducing residue. Recommend 1 visit w/ ELECTROMECHANICAL TECHNOLOGIST to provide education regarding results of this exam and recommended strategies. Given this exam showed mild residue in the pharynx, patient may consider avoiding the foods which cause him more trouble (i.e. tough hard solids). He may also consider cutting his food into small pieces and moistening in sauces and gravies as needed. Recommend following strategies: -Small bites of food -Chew food well -Moisten food with sauce/gravy -Multiple swallows -Alternate bite of food with sip of liquid -Take one sip of liquid at a time, avoid ?chugging? or consecutive sips -Upright 90 degree position while eating/drinking and for at least 30 minutes afterwards Suggested Referrals: The patient might benefit from a referral to: Gastroenterology Indication for Referral: Patient reports expectoration of food. Patient presents with s/s consistent with esophageal dysphagia. Recommend continue workup with G.I. Therapy Recommendations: Therapy will be initiated The following compensatory strategies and/or therapeutic exercises will be part of the upcoming therapy/management plan: Liquid Wash Additional Swallow(s) per Bolus Prognosis for Improvement: The prognosis for the patient to meet nutritional needs by mouth is excellent based on degree of impairment. Penitentiary Goals: ? The patient and/or family will participate in further education for swallowing goals. Short Term Goals: ? Education - The patient will verbalize/demonstrate understanding of the results of this evaluation, the above recommendations, and the swallowing guidelines. Clinician - Supplemental, Miscellaneous Communication: It is important to note MBSS objective studies are snapshots in time and Patient function might vary with factors such as time of day or concomitant medical conditions. For this reason, the final treatment plan for this patient should rest with their medical care team. Additional recommendations should be considered with the totality of the Patient in mind. Thank for the opportunity to participate in the care of this patient. If you have any questions about the content of this report, please contact the [facility] at [facility]. Education: Education regarding findings from today's study and plans for therapy were provided to Patient only through Verbal Instruction. Understanding was expressed by the Patient only. Jig Bore Tool Maker Clinician/Clinical Fellow: No Supervisory Statement: N/A Speech Language Pathologist: Jody Greenfield M.A., CCC-ELECTROMECHANICAL TECHNOLOGIST
== END 2022-04-08 14:28 | disposition home or self-care (01) ==
LOC: HO.XRAY 14:27
PROVIDERS: Visit Provider Nurse Practitioner Family
DX: R13.10 Dysphagia, unspecified (principal)
CPT/HCPCS: 74230; 92611

== ENCOUNTER → 2022-04-28 12:18 | Day surgery (SDC) | payer MEDICARE, SELFPAY ==
--- NOTE | 2022-04-27 10:06 | HO.ANESPROP2 ---
Documented by User: Rosalind Martell NP 04/27/22 10:16 HPI - Anesthesia Eval Consult details Narrative: 62yo M for Upper Endoscopy and Colonoscopy hx polysub abuse PMFSH Active Problems Active Problems: All Active Problems (Updated 04/22/22 @ 12:04 by Jessica Kaiser, NATHALIE) Substance abuse (Acute) Chronic fatigue (Acute) Status post total hip replacement, right (Acute) Infection of right prosthetic hip joint (Acute) Left hip pain (Acute) Physical exam (Acute) Screening for colon cancer (Acute) Dysphagia (Acute) Aortic stenosis (Acute) Erectile dysfunction (Acute) Anemia (Acute) Low testosterone (Acute) Microcytic anemia (Acute) Left atrial dilatation (Acute) Pulmonary HTN (Acute) Cocaine abuse (Acute) HTN (hypertension) (Acute) Hip arthritis (Acute) Hypertension (Acute) Past Medical History Medical History Asthma Chronic hepatitis C Dysphagia Heroin abuse Iron deficiency anemia Osteoarthritis Severe depression Sleep apnea Family History Family History Father Substance use disorder Mother Skin cancer Brother Substance use disorder Sister Cancer Surgical History Surgical History H/O arthroscopy of left knee H/O wrist surgery History of cranial surgery History of excision of lesion History of hip replacement, total History of incision and drainage History of total left hip replacement History of total left hip replacement Hx of colonoscopy Hx of eye surgery Hx of hemorrhoidectomy Social History Social History Household Members: None Housing: House Are you a primary manager medicare marketing to a significant other at home: No Do you presently have visiting nurse or other home services: No Patient Tobacco Use Status: Never used Tobacco e-Cigarette/Vaping Use: Never Used Second Hand Smoke Exposure: No Use of substances other than those prescribed or required for medical reasons: Yes Substance Use Type: Crack/Cocaine Substance Use Frequency: Occasionally Are you DNR?: No Advance Directives: Yes Advance Directives on File: Yes Advance Directives Date on File: 08/23/20 service: No Current occupational status: disabled Meds Allergies Allergy/AdvReac Type Severity Reaction Status Date / Time No Known Allergies Allergy Verified 04/22/22 11:59 Home Medications Medication Instructions Recorded Confirmed Last Taken Type aspirin 81 mg tablet,delayed 81 mg PO DAILY 09/17/21 04/22/22 Unknown History release (Adult Aspirin Regimen) irbesartan 300 mg tablet (Avapro) 300 mg PO DAILY 03/10/22 04/22/22 Unknown History Exam Exam Date and Time: April 27, 2022 1006 Narrative Narrative: EKG 12/2021 Sinus rhythm 64 beats per minute, normal EKG, QT interval 431 milliseconds ECHO 12/2021 Conclusions: - 1.? Normal LV systolic function with mild LVH and moderate ? ? asymmetric septal hypertrophy with pseudonormal filling pattern? 2. At least moderately dilated left atrium ? 3. Mild aortic stenosis? 4.? Normal RV systolic pressure? 5. No gross pericardial effusion ? 6. Mildly dilated ascending aorta? Findings Left Ventricle Normal left ventricular cavity size.? There is mildly increased left ventricular wall thickness.? The left ventricular systolic function is normal.? The visually estimated ejection fraction is between 65-70%. Spectral Doppler is indicative of a pseudonormal filling pattern.? E/E prime ratio is between 8 and 15 consistent with indeterminate filling pressures. There is moderate septal asymmetric hypertrophy. Assessment and Plan Assessment Anesthesia Assessment: Chart Reviewed Documented by User: Izabella Licea MD 04/28/22 13:15 HPI - Anesthesia Eval Consult details Narrative: 62yo M for Upper Endoscopy and Colonoscopy hx polysub abuse 1:10pm- Results of urine toxicology back. Positive for opiates(H), Fentanyl (H), cocaine (H). Patient now states used cocaine a while ago, smoked pot a couple days ago and a pain pill (no opiates on med list) Discussed with patient and Dr Ford. Case cancelled. Patient asked to reschedule. [facility] Past Medical History Medical History Asthma Chronic hepatitis C Dysphagia Heroin abuse Iron deficiency anemia Osteoarthritis Severe depression Sleep apnea Family History Family History Father Substance use disorder Mother Skin cancer Brother Substance use disorder Sister Cancer Surgical History Surgical History H/O arthroscopy of left knee H/O wrist surgery History of cranial surgery History of excision of lesion History of hip replacement, total History of incision and drainage History of total left hip replacement History of total left hip replacement Hx of colonoscopy Hx of eye surgery Hx of hemorrhoidectomy Social History Social History Household Members: None Housing: House Are you a primary manager medicare marketing to a significant other at home: No Do you presently have visiting nurse or other home services: No Patient Tobacco Use Status: Never used Tobacco e-Cigarette/Vaping Use: Never Used Second Hand Smoke Exposure: No Use of substances other than those prescribed or required for medical reasons: Yes Substance Use Type: Crack/Cocaine Substance Use Frequency: Occasionally Are you DNR?: No Advance Directives: Yes Advance Directives on File: Yes Advance Directives Date on File: 08/23/20 service: No Current occupational status: disabled Meds Allergies Allergy/AdvReac Type Severity Reaction Status Date / Time No Known Allergies Allergy Verified 04/22/22 11:59 Home Medications Medication Instructions Recorded Confirmed Last Taken Type aspirin 81 mg tablet,delayed 81 mg PO DAILY 09/17/21 04/22/22 Unknown History release (Adult Aspirin Regimen) irbesartan 300 mg tablet (Avapro) 300 mg PO DAILY 03/10/22 04/22/22 Unknown History
[2022-04-28 12:39] VITALS: BMI 29.1
[2022-04-28 12:51] VITALS: BP 159/85; PULSE 49; RESP 22; TEMP 36; O2SAT 97
[2022-04-28 13:01] LABS: Amphetamine Screen Urine Not Detected (Not Detect); Barbiturates, Urine Not Detected (Not Detect); Benzodiazepines Screen Urine Not Detected (Not Detect); Cannabinoid Screen Urine Not Detected (Not Detect); Cocaine Screen Urine POSITIVE (Not Detect); Fentanyl, urine POSITIVE (Not Detect); Opiate Screen Urine POSITIVE (Not Detect); Phencyclidine Screen Urine Not Detected (Not Detect)
[2022-04-28] MEDS: Lactated Ringers 1,000 ML 100 ML IVCONT (13:04)
--- NOTE | 2022-04-28 13:11 | PC.NURSE ---
uds drug screen + cocaine. Dr. Garcia over to see pt. procedure to be rescheduled. pt denied cocaine use x 1 week. iv removed & dsd applied no oozing noted. pt ambulated out of preop.
--- NOTE | 2022-04-28 13:14 | PC.NURSE ---
+ fentanyl + opieates uds as well
== END ==
PROVIDERS: Nurse Practitioner; PCP Nurse Practitioner Family; Visit Provider Internal Medicine Gastroenterology
DX: Z12.11 Encounter for screening for malignant neoplasm of colon (principal); Z53.09 Procedure and treatment not carried out because of other contraindication; R82.5 Elevated urine levels of drugs, medicaments and biological substances; R47.02 Dysphasia; K21.9 Gastro-esophageal reflux disease without esophagitis; Z79.899 Other long term (current) drug therapy
CPT/HCPCS: 80307

== ENCOUNTER 2022-06-19 10:26 | Outpatient (REF) | payer MEDICARE, SELFPAY ==
[2022-06-20 21:02] LABS: Follicle Stimulating Hormone 7.6 mIU/mL (1.6-8.0); Lutenizing Hormone 3.4 mIU/mL (1.6-15.2); Sex Hormone Binding Globulin 40 nmol/L (22-77)
[2022-06-24 20:22] LABS: Testosterone, Free 17.7 pg/mL (35.0-155.0); Testosterone, Total 130 ng/dL (250-1100)
== END 2022-06-19 10:27 | disposition home or self-care (01) ==
LOC: HO.LAB 10:26
PROVIDERS: PCP Nurse Practitioner Family; Visit Provider Urology
DX: E29.1 Testicular hypofunction (principal); R68.82 Decreased libido
CPT/HCPCS: 36415; 83001; 83002; 84270; 84402; 84403; 99202

== ENCOUNTER 2022-07-06 13:11 | Outpatient (REF) | payer MEDICARE, SELFPAY ==
[2022-07-06 13:50] LABS: MANUAL DIFF FLAG NO
[2022-07-06 13:59] LABS: Basophils Percent Auto 0.3 % (0-2); Eosinophils Absolute Auto 0.1 X10*3/uL (0.0-0.4); Hematocrit 43.1 % (42.0-52.0); Hemoglobin 13.6 g/dl (14.0-18.0); Imm Gran Abs Auto 0.03 X10*3/uL (0.00-0.03); Imm Gran Pct Auto 0.4 % (0.0-0.4); Lymphocytes Absolute Auto 1.7 X10*3/uL (1.2-4.9); Lymphocytes Percent Auto 24.1 % (20-40); Mean Corpuscular HGB Conc 31.6 g/dl (31.0-36.0); Mean Corpuscular Hemoglobin 25.3 pg (27.0-33.0); Mean Corpuscular Volume 80.1 fL (80.0-98.0); Mean Platelet Volume 10.1 fL (9.4-12.4); Monocytes Absolute Auto 0.3 X10*3/uL (0.1-1.2); Monocytes Percent Auto 4.8 % (2-11); Neutrophils Percent Auto 69.4 % (45-73); Platelet Count 247 X10*3/uL (160-400); Red Blood Count 5.38 X10*6/uL (4.60-5.80); Red Cell Distribution Width 17.4 % (11.0-16.0); White Blood Count 7.1 X10*3/uL (4.8-10.8)
[2022-07-06 14:46] LABS: Iron 108 mcg/dL (45-160); Percent Iron Saturation 34 % (15-50); Total Iron Binding Capacity 318 mcg/dL (228-428); Unsaturated Iron Binding 210 ug/dL
[2022-07-06 14:56] LABS: Ferritin 132 ng/mL (20-250)
[2022-07-08 03:26] LABS: Follicle Stimulating Hormone 7.4 mIU/mL (1.6-8.0); Lutenizing Hormone 3.1 mIU/mL (1.6-15.2); Sex Hormone Binding Globulin 49 nmol/L (22-77)
[2022-07-11 21:01] LABS: Testosterone, Free 15.8 pg/mL (35.0-155.0); Testosterone, Total 144 ng/dL (250-1100)
== END 2022-07-06 13:12 | disposition home or self-care (01) ==
LOC: HO.HMGCLDS 13:11
PROVIDERS: Absent Provider Urology; PCP Nurse Practitioner Family; Visit Provider Nurse Practitioner Family
DX: D64.9 Anemia, unspecified (principal)
CPT/HCPCS: 36415; 82728; 83001; 83002; 83540; 84270; 84402; 84403; 85025

== ENCOUNTER 2022-07-09 11:19 | Outpatient (RCR) | payer MEDICARE, SELFPAY | END 2022-11-11 11:02 | disposition home or self-care (01) | LOC: HO.SH 11:19 | PROVIDERS: Visit Provider Nurse Practitioner Family | DX: R13.10 Dysphagia, unspecified (principal) | CPT/HCPCS: 92526 ==

== ENCOUNTER → 2022-07-29 15:09 | Outpatient (BNVA) | payer MEDICARE, SELFPAY | PROVIDERS: PCP Nurse Practitioner Family; Referring Provider Nurse Practitioner Family; Visit Provider Internal Medicine Cardiovascular Disease | DX: I10 Essential (primary) hypertension (principal) | CPT/HCPCS: 99212 ==

== ENCOUNTER → 2022-08-26 13:04 | Day surgery (SDC) | payer MEDICARE, SELFPAY ==
[2022-08-21 15:44] VITALS: BMI 29.5
--- NOTE | 2022-08-25 12:34 | HO.ANESPROP2 ---
HPI - Anesthesia Eval Consult details Narrative: 62yo M for Upper Endoscopy and Colonoscopy Previously cx'd d/t +Utox PMFSH Active Problems Active Problems: All Active Problems (Updated 06/19/22 @ 10:16 by Niko West MD) Low libido (Acute) Substance abuse (Acute) Chronic fatigue (Acute) Status post total hip replacement, right (Acute) Infection of right prosthetic hip joint (Acute) Left hip pain (Acute) Physical exam (Acute) Screening for colon cancer (Acute) Dysphagia (Acute) Aortic stenosis (Acute) Erectile dysfunction (Acute) Anemia (Acute) Low testosterone (Acute) Microcytic anemia (Acute) Left atrial dilatation (Acute) Pulmonary HTN (Acute) Cocaine abuse (Acute) HTN (hypertension) (Acute) Hip arthritis (Acute) Hypertension (Acute) Past Medical History Medical History Asthma Chronic hepatitis C Cocaine abuse Dysphagia Heroin abuse Hip arthritis HTN (hypertension) Hypertension Iron deficiency anemia Left atrial dilatation Osteoarthritis Pulmonary HTN Severe depression Sleep apnea Family History Family History Father Substance use disorder Mother Skin cancer Brother Substance use disorder Sister Cancer Surgical History Surgical History H/O arthroscopy of left knee H/O wrist surgery History of cranial surgery History of excision of lesion History of hip replacement, total History of incision and drainage History of total left hip replacement History of total left hip replacement Hx of colonoscopy Hx of eye surgery Hx of hemorrhoidectomy Social History Social History Household Members: None Housing: House Are you a primary medicare sales executive to a significant other at home: No Do you presently have visiting nurse or other home services: No Patient Tobacco Use Status: Never used Tobacco e-Cigarette/Vaping Use: Never Used Second Hand Smoke Exposure: No Substance Use Type: Crack/Cocaine Advance Directives Date on File: 08/23/20 service: No Current occupational status: disabled Cognitive needs: No Hearing needs: No Vision needs: No Meds Allergies Allergy/AdvReac Type Severity Reaction Status Date / Time No Known Allergies Allergy Verified 07/29/22 15:17 Home Medications Medication Instructions Recorded Confirmed Last Taken Type aspirin 81 mg tablet,delayed 81 mg PO DAILY 09/17/21 07/29/22 Unknown History release (Adult Aspirin Regimen) Exam Exam Date and Time: August 25, 2022 1234 Height,Weight and Vital Signs: Height 5 ft 11 in Weight 96.162 kg Pertinent Lab Results Pertinent Lab Results: Laboratory Tests 04/14/22 07/06/22 11:20 13:12 WBC 7.1 Hgb 13.6 L D Hct 43.1 Plt Count 247 Sodium 139 Potassium 4.6 Chloride 102 Carbon Dioxide 29 BUN 23 H Creatinine 0.75 Narrative Narrative: EKG 12/2021 Sinus rhythm 64 beats per minute, normal EKG, QT interval 431 milliseconds ECHO 12/2021 Conclusions: - 1.? Normal LV systolic function with mild LVH and moderate ? ? asymmetric septal hypertrophy with pseudonormal filling pattern? 2. At least moderately dilated left atrium ? 3. Mild aortic stenosis? 4.? Normal RV systolic pressure? 5. No gross pericardial effusion ? 6. Mildly dilated ascending aorta? ?? Assessment and Plan Assessment Anesthesia Assessment: Chart Reviewed
--- NOTE | 2022-08-26 13:07 | P.HPSUR_ITS ---
Pre-Procedural Eval Section A Date of Service: 08/26/22 Section B Chief Complaint: screening,dysphagia Relevant Social History: Other (specify) (cocaine use ) Present Medications: see Short Stay Collaborative assessment Medical History: Significant History (Asthma Chronic hepatitis C Cocaine abuse Dysphagia Heroin abuse Hip arthritis HTN (hypertension) Hypertension Iron deficiency anemia Left atrial dilatation Osteoarthritis Pulmonary HTN Severe depression Sleep apnea) History of Previous Operations: Relevant previous surgery/procedure and date(s) (H/O arthroscopy of left knee H/O wrist surgery History of cranial surgery History of excision of lesion History of hip replacement, total History of incision and drainage History of total left hip replacement History of total left hip replacement Hx of colonoscopy Hx of eye surgery Hx of hemorrhoide) Allergies: Allergies Allergy/AdvReac Type Severity Reaction Status Date / Time No Known Allergies Allergy Verified 07/29/22 15:17 Review of Systems Sugical H&P ROS: Negative: Constitution, Cardiovascular, Respiratory, Neurolog ical, Psychiatric, Hem-Onc, Allergic/Immunologic, Gastrointestinal, Genitourinary, Musculoskeletal, Integumentary, Endocrine and Eyes/Ears/Nose/Throat Exam Surgical H&P Exam: Normal: HEENT, Normal: Heart, Normal: Lungs, Normal: Extremities, Normal: Abdomen, Normal: Skin and Normal: Neurological Plan Diagnosis/Plan: Unchanged I have reviewed the history and physical and performed a pertinent physical examination on my patient. No changes have occurred unless specified.
--- NOTE | 2022-08-26 13:31 | PC.NURSE ---
urine specimen light in color, sent to lab who responded that results inconclusive, Md. Lee to bedside and informed patient of result and that a blood draw would then be required, at that point patient state that he wanted to leave and then left facility
--- NOTE | 2022-08-26 13:32 | PM.EVENT ---
Event Note Date of Service: 08/26/22 Event Note: Patient with history of drug use who was cancelled prior for positive drug screen. Urine was taken and sent to the lab. Lab called nurse with high suspision of the sample being water and not urine. Spoke with patient and told him that the test was inconclusive and we needed a blood sample that we would make sure gets expedited. He combatively ripped off all his monitors and said he was leaving. he left AMA.
[2022-08-26 13:47] LABS: Amphetamine Screen Urine Not Detected (Not Detect); Barbiturates, Urine Not Detected (Not Detect); Benzodiazepines Screen Urine Not Detected (Not Detect); Cannabinoid Screen Urine Not Detected (Not Detect); Cocaine Screen Urine Not Detected (Not Detect); Fentanyl, urine Not Detected (Not Detect); Opiate Screen Urine Not Detected (Not Detect); Phencyclidine Screen Urine Not Detected (Not Detect)
[2022-08-26 13:50] LABS: Specific Gravity - Urine <= 1.005 (1.005-1.025)
== END ==
PROVIDERS: Anesthesiology; Nurse Practitioner; PCP Nurse Practitioner Family; Visit Provider Internal Medicine Gastroenterology
DX: Z12.11 Encounter for screening for malignant neoplasm of colon (principal); R13.10 Dysphagia, unspecified; Z53.29 Procedure and treatment not carried out because of patient's decision for other reasons; K21.9 Gastro-esophageal reflux disease without esophagitis; I11.9 Hypertensive heart disease without heart failure; J45.909 Unspecified asthma, uncomplicated; F14.10 Cocaine abuse, uncomplicated; F11.10 Opioid abuse, uncomplicated
CPT/HCPCS: 80307; 99499

== ENCOUNTER → 2022-10-28 10:13 | Outpatient (BNVA) | payer MEDICARE, SELFPAY | PROVIDERS: PCP Nurse Practitioner Family; Referring Provider Nurse Practitioner Family; Visit Provider Internal Medicine Cardiovascular Disease | DX: R94.31 Abnormal electrocardiogram [ECG] [EKG] (principal); I35.0 Nonrheumatic aortic (valve) stenosis; I10 Essential (primary) hypertension | CPT/HCPCS: 93005; 99212 ==

== ENCOUNTER 2023-02-17 11:06 | Outpatient (REF) | payer MEDICARE, SELFPAY ==
[2023-02-17 14:03] LABS: MANUAL DIFF FLAG NO
[2023-02-17 14:06] LABS: Appearance Urine Clear; Color Urine Yellow; Glucose Urine UA Negative (Negative); Leukocyte Esterase Urine Negative (Negative); Nitrite Urine Negative (Negative); Specific Gravity - Urine >= 1.030 (1.005-1.025); Urine Blood Negative (Negative); Urine Ketones Negative (Negative); Urine Protein Trace mg/dL (Neg-Trace)
[2023-02-17 14:09] LABS: Basophils Absolute Auto 0.1 X10*3/uL (0.0-0.2); Basophils Percent Auto 0.8 % (0-2); Eosinophils Absolute Auto 0.5 X10*3/uL (0.0-0.4); Eosinophils Percent Auto 5.5 % (0-4); Hematocrit 46.3 % (42.0-52.0); Hemoglobin 14.8 g/dl (14.0-18.0); Imm Gran Abs Auto 0.02 X10*3/uL (0.00-0.03); Imm Gran Pct Auto 0.2 % (0.0-0.4); Lymphocytes Absolute Auto 3.6 X10*3/uL (1.2-4.9); Lymphocytes Percent Auto 42.1 % (20-40); Mean Corpuscular Hemoglobin 26.9 pg (27.0-33.0); Mean Platelet Volume 10.9 fL (9.4-12.4); Monocytes Absolute Auto 0.7 X10*3/uL (0.1-1.2); Monocytes Percent Auto 8.3 % (2-11); Neutrophils Absolute Auto 3.7 x10*3/uL (2.0-8.3); Neutrophils Percent Auto 43.1 % (45-73); Platelet Count 239 X10*3/uL (160-400); Red Blood Count 5.51 X10*6/uL (4.60-5.80); Red Cell Distribution Width 14.2 % (11.0-16.0); White Blood Count 8.7 X10*3/uL (4.8-10.8)
[2023-02-17 15:25] LABS: Alanine Aminotransferase 19 U/L (0-40); Albumin Level 4.3 g/dL (3.5-5.0); Alkaline Phosphatase 91 U/L (39-117); Anion Gap 14 (12-20); Aspartate Amino Transferase 28 U/L (5-37); Bilirubin Total 0.7 mg/dL (0.0-1.0); Blood Urea Nitrogen 16 mg/dL (9-16); Calcium 9.3 mg/dL (8.4-10.2); Carbon Dioxide 30 mmol/L (22-29); Chloride 101 mmol/L (96-108); Cholesterol 183 mg/dL; Estimated Glomerular Filt Rate > 60; Glucose Fasting 82 mg/dL (60-99); HDL Cholesterol 67 mg/dL; LDL Cholesterol Calculated 96 mg/dl; Sodium 140 mmol/L (135-145); Total Protein 7.6 g/dL (6.5-8.0); Triglycerides 100 mg/dL
[2023-02-17 15:42] LABS: Prostate Specific Antigen Scr 0.19 ng/mL (<0.05-4.0); TSH reflex Free T4 2.51 uIU/mL (0.32-4.0)
== END 2023-02-17 11:07 | disposition home or self-care (01) ==
LOC: HO.HMGCLDS 11:06
PROVIDERS: PCP Nurse Practitioner Family; Visit Provider Nurse Practitioner Family
DX: Z00.00 Encounter for general adult medical examination without abnormal findings (principal); Z12.5 Encounter for screening for malignant neoplasm of prostate
CPT/HCPCS: 36415; 80053; 80061; 81003; 84153; 84443; 85025

== ENCOUNTER 2023-04-21 11:37 | Outpatient (REF) | payer MEDICARE, SELFPAY ==
[2023-04-21 11:49] LABS: MANUAL DIFF FLAG NO
[2023-04-21 12:54] LABS: Appearance Urine Clear; Color Urine Yellow; Glucose Urine UA Negative (Negative); Leukocyte Esterase Urine Negative (Negative); Nitrite Urine Negative (Negative); Specific Gravity - Urine 1.025 (1.005-1.025); Urine Blood Negative (Negative); Urine Ketones Negative (Negative); Urine Protein Negative (Neg-Trace)
[2023-04-21 13:27] LABS: Basophils Absolute Auto 0.1 X10*3/uL (0.0-0.2); Basophils Percent Auto 0.7 % (0-2); Eosinophils Absolute Auto 0.3 X10*3/uL (0.0-0.4); Eosinophils Percent Auto 4.4 % (0-4); Hematocrit 42.9 % (42.0-52.0); Hemoglobin 13.8 g/dl (14.0-18.0); Imm Gran Abs Auto 0.01 X10*3/uL (0.00-0.03); Imm Gran Pct Auto 0.1 % (0.0-0.4); Lymphocytes Percent Auto 41.9 % (20-40); Mean Corpuscular HGB Conc 32.2 g/dl (31.0-36.0); Mean Corpuscular Hemoglobin 27.1 pg (27.0-33.0); Mean Corpuscular Volume 84.1 fL (80.0-98.0); Mean Platelet Volume 11.5 fL (9.4-12.4); Monocytes Absolute Auto 0.7 X10*3/uL (0.1-1.2); Monocytes Percent Auto 9.2 % (2-11); Neutrophils Absolute Auto 3.1 x10*3/uL (2.0-8.3); Neutrophils Percent Auto 43.7 % (45-73); Platelet Count 237 X10*3/uL (160-400); Red Cell Distribution Width 14.3 % (11.0-16.0); White Blood Count 7.1 X10*3/uL (4.8-10.8)
[2023-04-21 14:07] LABS: Alanine Aminotransferase 17 U/L (0-40); Albumin Level 4.4 g/dL (3.5-5.0); Alkaline Phosphatase 97 U/L (39-117); Anion Gap 12 (12-20); Aspartate Amino Transferase 22 U/L (5-37); Bilirubin Total 0.7 mg/dL (0.0-1.0); Blood Urea Nitrogen 17 mg/dL (9-16); Calcium 9.9 mg/dL (8.4-10.2); Carbon Dioxide 34 mmol/L (22-29); Chloride 100 mmol/L (96-108); Cholesterol 170 mg/dL; Estimated Glomerular Filt Rate > 60; Glucose Fasting 71 mg/dL (60-99); HDL Cholesterol 61 mg/dL; LDL Cholesterol Calculated 73 mg/dl; Potassium 4.3 mmol/L (3.3-5.1); Sodium 142 mmol/L (135-145); Total Protein 7.9 g/dL (6.5-8.0); Triglycerides 182 mg/dL
[2023-04-21 14:23] LABS: TSH reflex Free T4 1.55 uIU/mL (0.32-4.0)
[2023-04-29 17:28] LABS: Testosterone, Free 15.1 pg/mL (35.0-155.0); Testosterone, Total 124 ng/dL (250-1100)
== END 2023-04-21 11:38 | disposition home or self-care (01) ==
LOC: HO.LAB 11:37
PROVIDERS: PCP Nurse Practitioner Family; Visit Provider Urology
DX: R79.89 Other specified abnormal findings of blood chemistry (principal); I10 Essential (primary) hypertension
CPT/HCPCS: 36415; 80053; 80061; 81003; 84402; 84403; 84443; 85025

== ENCOUNTER 2023-07-05 10:00 | Outpatient (AMB) | payer MEDICARE, SELFPAY ==
[2023-07-05 10:06] VITALS: BP 142/78; PULSE 69; O2SAT 97; BMI 30.2
--- NOTE | 2023-07-05 10:06 | A.OFFPC_ITS ---
Vital Signs 07/05/23 10:06 Height 5 ft 11 in Weight 216 lb 8 oz BMI 30.2 BP 142/78 H Blood Pressure Location Rt brachial Position Sitting Pulse 69 Pulse Source Pulse Oximeter Pulse Oximetry (%) 97 Oxygen Delivery Method Room Air Intake Visit Reasons: 4m follow up Allergies No Known Allergies Allergy (Verified 07/05/23 10:08) Medication List - Last Reconciled 07/05/23 by ARELY Santa albuterol sulfate 90 mcg/actuation 1 puff inhalation Q8H PRN 30 days ascorbate calcium (vitamin C) 500 mg PO DAILY aspirin (Adult Aspirin Regimen) 81 mg PO DAILY buspirone 10 mg PO BID ferrous sulfate 325 mg PO DAILY fluticasone propionate 44 mcg/actuation (Flovent HFA) 1 puff inhalation BID hydrochlorothiazide 25 mg PO DAILY irbesartan (Avapro) 300 mg PO DAILY 90 days polyethylene glycol 3350 (Miralax) 238 grams PO ONCE Tobacco use date assessed: 07/05/23 Fall risk assessment: 1 Fall in past year Last assessed Fall Risk: 07/05/23 Dental Screening Dental Screen Date: 07/05/23 Did you have a dental visit in the last 12 months?: No Did you have a dental problem in the last 6 months where you did not have access to dental care?: No Was dental information given to patient?: No HPI 4m follow up HPI Details HTN: Blood pressure is managed with hydrochlorothiazide 25mg and irbesartan 300mg. Pt has not been taking his BP at home lately, recommend pt start taking his BP again. Denies chest pain, shortness of breath, headache, dizziness, and blurred vision. Pt has a sprigger [facility] Medical History Asthma Chronic hepatitis C Cocaine abuse Dysphagia Heroin abuse Hip arthritis HTN (hypertension) Hypertension Iron deficiency anemia Left atrial dilatation Osteoarthritis Pulmonary HTN Severe depression Sleep apnea Surgical History H/O arthroscopy of left knee H/O wrist surgery History of cranial surgery History of excision of lesion History of hip replacement, total History of incision and drainage History of total left hip replacement History of total left hip replacement Hx of colonoscopy Hx of eye surgery Hx of hemorrhoidectomy Family History Father Substance use disorder Mother Skin cancer Brother Substance use disorder Sister Cancer Social History Household Members: None Housing: House Are you a primary women's health care nurse practitioner to a significant other at home: No Do you presently have visiting nurse or other home services: No Patient Tobacco Use Status: Never used Tobacco e-Cigarette/Vaping Use: Never Used Second Hand Smoke Exposure: No Substance Use Type: Crack/Cocaine Advance Directives Date on File: 08/23/20 service: No Current occupational status: disabled Cognitive needs: No Hearing needs: No Vision needs: No Questionnaire Thrive Questionnaire Date Thrive assessed: 02/12/22 DMITRI-7 AMB Questionnaire DMITRI-7 Date DMITRI - 7 assessed: 02/12/22 Source: Developed by Drs. Abdulaziz Dasilva, Lucy Kebede, James Balderas and colleagues, with an educational marco from [employer]. Review of Systems Const Reports as per HPI Physical exam (Primary Care) Vital Signs: Last Vital Signs Pulse 69 07/05/23 10:06 BP 142/78 H 07/05/23 10:06 Pulse Ox 97 07/05/23 10:06 Oxygen Delivery Method Room Air 07/05/23 10:06 BMI result Body Mass Index 30.2 Tobacco/Smoking Status: Tobacco use Status Tobacco use date assessed 07/05/23 07/05/23 10:11 Patient Tobacco Use Status Never used Tobacco 07/05/23 10:11 e-Cigarette/Vaping Use Never Used 07/05/23 10:11 Thrive Assessment: Date of Thrive Assessment Date Thrive assessed 02/12/22 07/05/23 10:11 Const General: cooperative Orientation/consciousness: patient oriented x3 Resp Effort & Inspection: normal respiratory effort Auscultation: clear to auscultation bilaterally Cardio Rate: regular rate Rhythm: regular rhythm Heart sounds: S1 normal heart sound present, S2 normal heart sound present and Murmur heart sound present systolic Neuro General: patient oriented x3 Extrem Right lower extremity: no edema Left lower extremity: no edema Psych Appearance: grossly normal Mental Status: mental status grossly normal Speech and movement: Normal speech and movement present Affect: normal affect Attitude: cooperative Thought process: Normal thought process present Thought content: Normal thought content present Insight: Good insight present (Psych) Judgement: Good judgement present (Psych) Assessment and Plan Assessment & Plan (1) HTN (hypertension): Code(s): I10 - Essential (primary) hypertension Plan: Monitor BP at home Plan The patient agreed to the use of a medical equipment repairer for this encounter. Scribed for ARELY Aranda by Lea Crawford medical equipment repairer, on 07/05/2023 at 10:30 EST. Orders: Orders Comprehensive [place]. Panel Fast Today I10 - Essential (primary) hypertension Lipid Panel Today I10 - Essential (primary) hypertension TSH reflex Free T4 Today I10 - Essential (primary) hypertension Complete Blood Count Auto Diff Today I10 - Essential (primary) hypertension UA CC w/rflx Micro + Cult Today I10 - Essential (primary) hypertension Coding Level of Care Code Est Pt Level 3 (20700) Diagnoses HTN (hypertension) I10
== END 2023-07-05 11:03 | disposition home or self-care (01) ==
PROVIDERS: PCP Nurse Practitioner Family; Visit Provider Nurse Practitioner Family
DX: I10 Essential (primary) hypertension (principal)
CPT/HCPCS: 99213

== ENCOUNTER 2023-09-20 10:01 | Outpatient (REF) | payer MEDICARE, SELFPAY ==
[2023-09-20 13:19] LABS: MANUAL DIFF FLAG NO
[2023-09-20 13:28] LABS: Basophils Absolute Auto 0.1 X10*3/uL (0.0-0.2); Eosinophils Absolute Auto 0.4 X10*3/uL (0.0-0.4); Eosinophils Percent Auto 5.1 % (0-4); Hematocrit 44.8 % (42.0-52.0); Hemoglobin 14.4 g/dl (14.0-18.0); Imm Gran Abs Auto 0.02 X10*3/uL (0.00-0.03); Imm Gran Pct Auto 0.3 % (0.0-0.4); Lymphocytes Absolute Auto 2.9 X10*3/uL (1.2-4.9); Lymphocytes Percent Auto 39.9 % (20-40); Mean Corpuscular HGB Conc 32.1 g/dl (31.0-36.0); Mean Corpuscular Volume 84.1 fL (80.0-98.0); Mean Platelet Volume 10.7 fL (9.4-12.4); Monocytes Absolute Auto 0.5 X10*3/uL (0.1-1.2); Monocytes Percent Auto 7.3 % (2-11); Neutrophils Absolute Auto 3.4 x10*3/uL (2.0-8.3); Neutrophils Percent Auto 46.4 % (45-73); Platelet Count 265 X10*3/uL (160-400); Red Blood Count 5.33 X10*6/uL (4.60-5.80); Red Cell Distribution Width 14.3 % (11.0-16.0); White Blood Count 7.3 X10*3/uL (4.8-10.8)
[2023-09-20 13:34] LABS: Appearance Urine Clear; Color Urine Yellow; Glucose Urine UA Negative (Negative); Leukocyte Esterase Urine Negative (Negative); Nitrite Urine Negative (Negative); PH 5.5 (5.0-9.0); Specific Gravity - Urine >= 1.030 (1.005-1.025); UMIC TRIGGER UACC YES; Urine Blood Trace (Negative); Urine Ketones Negative (Negative); Urine Protein Trace mg/dL (Neg-Trace)
[2023-09-20 13:39] LABS: Bacteria Urine None Seen (None Seen); Hyaline Casts Urine 0-2 /LPF (0-2); RBC Urine 0-2 /HPF (0-2); Squamous Epithelial Cell Urine 0-2 /HPF (0-2); WBC Urine 0-5 /HPF (0-5)
[2023-09-20 13:57] LABS: Alanine Aminotransferase 17 U/L (0-40); Albumin Level 4.3 g/dL (3.5-5.0); Alkaline Phosphatase 92 U/L (39-117); Anion Gap 13 (12-20); Aspartate Amino Transferase 27 U/L (5-37); Bilirubin Total 0.3 mg/dL (0.0-1.0); Blood Urea Nitrogen 15 mg/dL (9-16); Calcium 9.5 mg/dL (8.4-10.2); Carbon Dioxide 32 mmol/L (22-29); Chloride 101 mmol/L (96-108); Cholesterol 175 mg/dL (<200); Estimated Glomerular Filt Rate > 60; Glucose Fasting 79 mg/dL (60-99); HDL Cholesterol 65 mg/dL (>40); LDL Cholesterol Calculated 92 mg/dL (<100); Potassium 4.1 mmol/L (3.3-5.1); Sodium 142 mmol/L (135-145); TSH reflex Free T4 1.56 uIU/mL (0.32-4.0); Total Protein 8.1 g/dL (6.5-8.0); Triglycerides 94 mg/dL (<150)
== END 2023-09-20 10:02 | disposition home or self-care (01) ==
LOC: HO.HMGCLDS 10:01
PROVIDERS: PCP Nurse Practitioner Family; Visit Provider Nurse Practitioner Family
DX: I10 Essential (primary) hypertension (principal)
CPT/HCPCS: 36415; 80053; 80061; 81001; 84443; 85025